=== PATIENT | female | born 1980 | race Caucasian/White ===

== ENCOUNTER 2022-06-16 23:34 | Emergency (ER) | payer OTHER ==
[~2022-06-16 23:34] MED LIST: LODINE CAP 300300 MG PO; NAPROSYN EC 37375 MG PO; NORCO 5-325 TA1 EACH PO; NORFLEX 100 MG100 MG PO
== END 2022-06-17 02:00 | disposition home or self-care (01) ==
LOC: ER1 23:34
DX: S93.401A Sprain of unspecified ligament of right ankle, initial encounter (principal); F17.200 Nicotine dependence, unspecified, uncomplicated; X50.9XXA Other and unspecified overexertion or strenuous movements or postures, initial encounter; Y92.009 Unspecified place in unspecified non-institutional (private) residence as the place of occurrence of the external cause
CPT/HCPCS: 73610; 73630; 99283